=== PATIENT | male | born 1950 | race Caucasian/White ===

== ENCOUNTER → 2016-09-22 | Outpatient (REF) | payer MEDICARE ==
[~2016-09-22] MED LIST: /GLIP10TAB; /INSULEV; ACET65TA; ASPI1TAB PO; ATOR40TA75 PO; BENA40TA2; BENAZEP/HCTZ PO; CINN1CAP PO; D 50CAP PO; GLIPPOW; HUMA100I5; HUMALOG; HYDROCHLOROTHIAZIDE; MINO50CA3 PO; OMEG1CAP16 PO; OMEP20CA3 PO; OMEP20TA7; PRAV10TA2; PRAV40TA; PRAVASTATIN; TETR250C; TOUJ1.2I SUBQ; VICT18IN SUBQ; VITA10006 PO
[2016-09-22 19:43] LABS: BLOOD UREA NITROGEN 21 MG/DL (7-18); CREATININE FOR GFR 1.15 MG/DL (0.70-1.30); GLOMERULAR FILTRATION RATE > 60.0 (>49)
== END ==
LOC: M LABDRAW1 17:19
PROVIDERS: ATTEND Physical Medicine & Rehabilitation
DX: M77.12 Lateral epicondylitis, left elbow (principal)

== ENCOUNTER 2016-12-01 07:29 | Outpatient (CLI) | payer MEDICARE ==
[~2016-12-01] VITALS: Ht 165.1 cm; Wt 95.3 kg
[2016-12-01] MEDS ORDERED: NS 1,000 ML IV ONE (07:45)
[2016-12-01] MEDS ORDERED: PROPOFOL 200 MG/20 ML VIAL As Ordered ONE (08:36)
[2016-12-01] MEDS ORDERED: LIDOCAINE 2% INJ 100 MG/5 ML SDV (FOR ANES.) As Ordered ONE (08:36)
--- NOTE | 2016-12-01 09:04 | ROOR ---
Patient Name: Emmanuel Layne Procedure Date: 12/01/2016 8:33 AM Date of : 1950 Age: 66 Room: [facility] Gender: Male Note Status: Finalized Procedure: Total Colonoscopy to cecum + Biopsy Polypectomy Indications: Screening for colorectal malignant neoplasm, Last colonoscopy: 2006 Providers: Evaristo Gaona MD Referring MD: Kailash Martell MD Requesting Provider: Medicines: Monitored Anesthesia Care Complications: No immediate complications. Procedure: Pre-Anesthesia Assessment: - The heart rate, respiratory rate, oxygen saturations, blood pressure, adequacy of pulmonary ventilation, and response to care were monitored throughout the procedure. The Colonoscope was introduced through the anus and advanced to the cecum, identified by appendiceal orifice and ileocecal valve. The colonoscopy was performed without difficulty. The patient tolerated the procedure well. The quality of the bowel preparation was excellent. Findings: The perianal and digital rectal examinations were normal. Non-bleeding internal hemorrhoids were found during retroflexion. The hemorrhoids were small and Grade I (internal hemorrhoids that do not prolapse). Scattered small-mouthed diverticula were found in the recto-sigmoid colon, sigmoid colon and descending colon. A small polyp was found at 20 cm proximal to the anus. The polyp was sessile. The polyp was removed with a jumbo cold forceps. Resection and retrieval were complete. The exam was otherwise without abnormality on direct and retroflexion views. Impression: - Non-bleeding internal hemorrhoids. - Diverticulosis in the recto-sigmoid colon, in the sigmoid colon and in the descending colon. - One small polyp at 20 cm proximal to the anus, removed with a jumbo cold forceps. Resected and retrieved. - The examination was otherwise normal on direct and retroflexion views. - The exam was otherwise normal to the cecum. Recommendation: - Patient has a contact number available for emergencies. The signs and symptoms of potential delayed complications were discussed with the patient. Return to normal activities tomorrow. Written discharge instructions were provided to the patient. - High fiber diet. - Discharge patient to home. - Continue present medications. - Await pathology results. - Repeat colonoscopy in 10 years for surveillance based on pathology results. - Return to referring physician. - The findings and recommendations were discussed with the patient's family. Evaristo Gaona MD Evaristo Gaona MD 12/01/2016 9:04:05 AM This report has been signed electronically. Number of Addenda: 0 Note Initiated On: 12/01/2016 8:33 AM Estimated Blood Loss: Estimated blood loss: none.
[2016-12-01 09:30] VITALS: BP 172/80
== END 2016-12-01 09:35 | disposition home or self-care (01) ==
LOC: M OPP 07:29
PROVIDERS: ATTEND Internal Medicine Gastroenterology
DX: Z12.11 Encounter for screening for malignant neoplasm of colon (principal); D12.5 Benign neoplasm of sigmoid colon; K64.0 First degree hemorrhoids; K57.30 Diverticulosis of large intestine without perforation or abscess without bleeding; I10 Essential (primary) hypertension; E78.5 Hyperlipidemia, unspecified; E11.9 Type 2 diabetes mellitus without complications; R12 Heartburn; M19.90 Unspecified osteoarthritis, unspecified site; Z86.14 Personal history of Methicillin resistant Staphylococcus aureus infection; M54.2 Cervicalgia; M25.60 Stiffness of unspecified joint, not elsewhere classified; L40.9 Psoriasis, unspecified; G47.8 Other sleep disorders; G47.30 Sleep apnea, unspecified; R06.83 Snoring; Z85.828 Personal history of other malignant neoplasm of skin; Z79.82 Long term (current) use of aspirin; Z79.899 Other long term (current) drug therapy; Z79.4 Long term (current) use of insulin; Z80.7 Family history of other malignant neoplasms of lymphoid, hematopoietic and related tissues; Z83.71 Family history of colonic polyps

== ENCOUNTER → 2019-01-31 | Outpatient (REF) | payer MEDICARE ==
[~2019-01-31] MED LIST changes: -/INSULEV; -ASPI1TAB PO; +ASPI81TA26 PO; +LEVE0.01; -OMEP20CA3 PO; +OMEP20CA4 PO
[2019-01-31 13:20] LABS: APPEARANCE, URINE CLEAR (CLEAR); BACTERIA, URINE AUTO NEGATIVE (NEGATIVE); BILIRUBIN, URINE AUTO NEGATIVE (NEGATIVE); BLOOD, URINE BLOOD NEGATIVE (NEGATIVE); COLOR, URINE STRAW (YELLOW); GLUCOSE, URINE (UA) AUTO 3+ mg/dL (NEGATIVE); KETONE, URINE AUTO NEGATIVE (NEGATIVE); LEUKOCYTE ESTERASE, URINE AUTO NEGATIVE (NEGATIVE); NITRITE, URINE AUTO NEGATIVE (NEGATIVE); PROTEIN, URINE AUTO NEGATIVE (NEGATIVE); RBC, URINE AUTO 2 /HPF (0-3); SPECIFIC GRAVITY URINE AUTO 1.008 (1.002-1.035); SQUAMOUS EPITHELIAL CELL UR AU 0 /HPF (0-6); UROBILINOGEN, URINE AUTO 0.2 mg/dL (0.0-2.0); WBC, URINE AUTO 1 /HPF (0-3)
[2019-01-31 13:28] LABS: INR 0.99; PROTHROMBIN TIME 12.8 SECONDS (11.8-14.0)
[2019-01-31 13:29] LABS: PARTIAL THROMBOPLASTIN TIME 29.1 SECONDS (25.0-38.4)
== END ==
LOC: M LAB REF 12:21
PROVIDERS: ATTEND Family Medicine
DX: Z01.818 Encounter for other preprocedural examination (principal); Z79.01 Long term (current) use of anticoagulants

== ENCOUNTER → 2019-03-29 | Outpatient (REF) | payer MEDICARE ==
[~2019-03-29] MED LIST changes: +OMEP1CAP73 PO; -OMEP20CA4 PO
== END ==
LOC: M LAB REF 09:26
PROVIDERS: ATTEND Dermatology
DX: D22.62 Melanocytic nevi of left upper limb, including shoulder (principal)

== ENCOUNTER → 2019-05-15 | Outpatient (REF) | payer MEDICARE | LOC: M LAB REF 16:38 | PROVIDERS: ATTEND Dermatology | DX: D22.62 Melanocytic nevi of left upper limb, including shoulder (principal) ==

== ENCOUNTER → 2019-09-13 | Outpatient (REF) | payer MEDICARE | LOC: M LAB REF 09:22 | PROVIDERS: ATTEND Dermatology | DX: C44.320 Squamous cell carcinoma of skin of unspecified parts of face (principal); L57.0 Actinic keratosis ==

== ENCOUNTER → 2019-10-25 | Outpatient (REF) | payer MEDICARE | LOC: M LAB REF 13:55 | PROVIDERS: ATTEND Dermatology | DX: C44.319 Basal cell carcinoma of skin of other parts of face (principal) ==

== ENCOUNTER → 2021-02-16 | Outpatient (CLI) | payer OTHER | LOC: M PLAIMG 15:11 | PROVIDERS: ATTEND Physician Assistant | DX: M47.26 Other spondylosis with radiculopathy, lumbar region (principal) ==

== ENCOUNTER → 2021-04-03 | Outpatient (REF) | payer MEDICARE ==
[2021-04-05 04:06] LABS: LDL DIRECT 60 mg/dL (0-99)
== END ==
LOC: M LAB REF 17:03
PROVIDERS: ATTEND Family Medicine
DX: E78.00 Pure hypercholesterolemia, unspecified (principal)

== ENCOUNTER → 2021-06-17 | Outpatient (REF) | payer MEDICARE | LOC: M SFHCDERM 16:33 | PROVIDERS: ATTEND Physician Assistant | DX: L57.0 Actinic keratosis (principal) ==

== ENCOUNTER → 2022-04-27 | Outpatient (REF) | payer MEDICARE ==
[2022-04-29 08:09] LABS: LDL DIRECT 55 mg/dL (0-99)
== END ==
LOC: M LAB REF 16:17
PROVIDERS: ATTEND Family Medicine
DX: E78.00 Pure hypercholesterolemia, unspecified (principal)

== ENCOUNTER → 2022-10-13 | Outpatient (REF) | payer MEDICARE ==
[2022-10-14 08:11] LABS: LDL DIRECT 65 mg/dL (0-99)
== END ==
LOC: M LAB REF 11:31
PROVIDERS: ATTEND Family Medicine
DX: E78.00 Pure hypercholesterolemia, unspecified (principal)

== ENCOUNTER 2022-11-04 06:14 | Observation (INO) | payer MEDICARE ==
[~2022-11-04] VITALS: Ht 167.6 cm; Wt 91.9 kg
[~2022-11-04 06:14] MED LIST changes: +TOUJ1.2I SC; -TOUJ1.2I SUBQ
[2022-11-04] MEDS ORDERED: METF500T13 PO (06:29)
[2022-11-04] MEDS ORDERED: VENL75CA47 PO (06:29)
[2022-11-04] MEDS ORDERED: NS 1,000 ML IV ONE ×2 (07:15→09:15)
[2022-11-04 07:54] LABS: VENOUS BASE EXCESS -0.1 (-2.0-2.0); VENOUS HCO3 24.3 MMOL/L (23.0-27.0); VENOUS O2 SATURATION 94.6 % (60.0-80.0); VENOUS PARTIAL PRESSURE O2 72.2 mmHg (30.0-50.0); VENOUS PH 7.413 UNITS (7.330-7.430); VENOUS STANDARD HCO3 24.4 MMOL/L; VENOUS TOTAL CO2 25.5 MMOL/L (24.0-28.0)
[2022-11-04 08:02] LABS: BASO % 0.3 % (0.0-1.0); EOS # 0.1 10^3/uL (0.0-0.5); EOS % 0.9 % (0.0-3.0); HEMATOCRIT 39.5 % (42.0-52.0); HEMOGLOBIN 13.5 g/dl (13.5-17.5); LYMPH # 0.7 10^3/uL (1.5-5.0); MEAN CORPUSCULAR HGB CONC 34.2 g/dl (32.0-36.5); MEAN CORPUSCULAR VOLUME 84.9 fl (80.0-96.0); MONO # 0.5 10^3/uL (0.0-0.8); MONO % 8.3 % (2.0-8.0); NEUTROPHILS # 5.1 10^3/uL (1.5-8.5); NEUTROPHILS % 78.9 % (36.0-66.0); PLATELET COUNT, AUTOMATED 167 10^3/uL (150-450); RED BLOOD COUNT 4.65 10^6/uL (4.30-6.10); WHITE BLOOD COUNT 6.5 10^3/uL (4.0-10.0)
[2022-11-04 08:17] LABS: HEMOGLOBIN A1c 11.6 % (4.0-6.0)
[2022-11-04 08:20] LABS: INR 1.02; PROTHROMBIN TIME 13.1 SECONDS (12.5-14.5)
[2022-11-04 08:21] LABS: PARTIAL THROMBOPLASTIN TIME 28.4 SECONDS (24.8-34.2)
[2022-11-04 08:25] LABS: ETHYL ALCOHOL (ETHANOL) 0.004 % (0.000-0.010)
[2022-11-04 08:26] LABS: CK-MB VALUE MASS < 1.0 NG/ML (<3.6)
[2022-11-04 08:27] LABS: ACETONE/KETONE 0.54 MMOL/L (0.02-0.27); CPK CREATINE PHOSPHOKINASE 104 U/L (46-171); MB/CK RELATIVE INDEX 0.96 (< OR =4)
[2022-11-04] MEDS: ATORVASTATIN 20 MG TAB PO SCH (09:00)
[2022-11-04] MEDS: BENAZEPRIL 20 MG TAB PO SCH (09:00)
[2022-11-04] MEDS: ASPIRIN 81MG ENTERIC TABLET PO SCH (09:00)
[2022-11-04] MEDS: DOXYCYCLINE HYCLATE 100MG TABLET PO SCH ×2 (09:00→21:50)
[2022-11-04] MEDS ORDERED: LEVEMIR (INSULIN DETEMIR) 1 UNITS/0.01ML SC SCH (09:00)
[2022-11-04] MEDS: CETIRIZINE (ZyrTEC) 10 MG TAB PO SCH (09:00)
[2022-11-04 09:34] LABS: CK-MB VALUE MASS < 1.0 NG/ML (<3.6)
[2022-11-04 09:35] LABS: CPK CREATINE PHOSPHOKINASE 86 U/L (46-171); MB/CK RELATIVE INDEX 1.16 (< OR =4)
[2022-11-04 09:42] LABS: APPEARANCE, URINE CLEAR (CLEAR); BACTERIA, URINE AUTO NEGATIVE (NEGATIVE); BILIRUBIN, URINE AUTO NEGATIVE (NEGATIVE); BLOOD, URINE BLOOD NEGATIVE (NEGATIVE); COLOR, URINE YELLOW (YELLOW); GLUCOSE, URINE (UA) AUTO 3+ mg/dL (NEGATIVE); KETONE, URINE AUTO 1+ mg/dL (NEGATIVE); LEUKOCYTE ESTERASE, URINE AUTO NEGATIVE (NEGATIVE); MUCUS, URINE SMALL (NEGATIVE); NITRITE, URINE AUTO NEGATIVE (NEGATIVE); PROTEIN, URINE AUTO 2+ mg/dL (NEGATIVE); RBC, URINE AUTO 1 /HPF (0-3); SPECIFIC GRAVITY URINE AUTO 1.035 (1.002-1.035); SQUAMOUS EPITHELIAL CELL UR AU 0 /HPF (0-6); UROBILINOGEN, URINE AUTO 0.2 mg/dL (0.0-2.0); WBC, URINE AUTO 1 /HPF (0-3)
[2022-11-04 10:09] LABS: AMPHETAMINES LEVEL URINE NEGATIVE (NEGATIVE); BARBITURATES URINE NEGATIVE (NEGATIVE); BENZODIAZEPINES URINE NEGATIVE (NEGATIVE); COCAINE METABOLITE URINE NEGATIVE (NEGATIVE); METHADONE URINE NEGATIVE (NEGATIVE)
[2022-11-04 10:10] LABS: CANNABINOIDS URINE NEGATIVE (NEGATIVE); OPIATES URINE NEGATIVE (NEGATIVE); PHENCYCLIDINE URINE NEGATIVE (NEGATIVE)
[2022-11-04] MEDS ORDERED: MED REC IN PROGRESS XX SCH ×2 (11:20→14:30)
[2022-11-04] MEDS ORDERED: MED REC CURRENTLY UNOBTAINABLE XX SCH (11:30)
[2022-11-04] MEDS ORDERED: MOM 30ML SUSPENSION UDC PO PRN (14:30)
[2022-11-04] MEDS ORDERED: ACETAMINOPHEN TAB 650MG DOSE (2X325MG) PO PRN (14:30)
[2022-11-04] MEDS ORDERED: GLUCOSE 4GM CHEW TABLET PO PRN (14:40)
[2022-11-04] MEDS ORDERED: GLUCAGON INJ 1MG VIAL SC PRN (14:40)
[2022-11-04] MEDS ORDERED: DEXTROSE 50% 50ML SYRINGE IV PRN (14:40)
[2022-11-04] MEDS ORDERED: DOXY50CA PO (14:49)
[2022-11-04] MEDS ORDERED: D3 U5000 PO (14:49)
[2022-11-04] MEDS ORDERED: BENA20TA6 PO (14:49)
[2022-11-04] MEDS ORDERED: CETI-24 PO (14:51)
[2022-11-04] MEDS ORDERED: HOME MED LIST COMPLETE! XX SCH (14:55)
[2022-11-04 16:21] VITALS: BP 168/92; TEMP 99.1; O2SAT 96
[2022-11-04 16:30] VITALS: BP_SYST 132; BP_SYST 151; BP_SYST 168; BP_DIAS 85; BP_DIAS 89; BP_DIAS 92
[2022-11-04] MEDS: OMEPRAZOLE 20MG CAP PO SCH (17:13)
[2022-11-04] MEDS: VENLAFAXINE **XR** 75MG CAPSULE PO SCH (17:13)
[2022-11-04] MEDS: hydroCHLOROthiazide 12.5 MG CAPSULE PO SCH (17:13)
[2022-11-04] MEDS: VITAMIN D 1,000 INTERNATIONAL UNITS TABLET PO SCH (17:13)
[2022-11-04] MEDS: INSULIN LISPRO (NovoLOG) PER UNIT SC SCH ×2 (17:14→21:51)
[2022-11-04] MEDS: RIVAROXABAN 10MG TAB (XARELTO) PO SCH (17:14)
[2022-11-04 20:07] VITALS: BP 154/88; TEMP 99; O2SAT 98
[2022-11-04] MEDS ORDERED: PILL CUTTER 1 EACH XX ONE (21:46)
[2022-11-04 21:50] VITALS: BP_SYST 152; BP_SYST 178; BP_SYST 184; BP_DIAS 86; BP_DIAS 87; BP_DIAS 88
[2022-11-04] MEDS: DOCUSATE SODIUM 100MG CAPSULE PO SCH (21:50)
[2022-11-04] MEDS: LEVEMIR (INSULIN DETEMIR) 1 UNITS/0.01ML SC SCH (21:51)
[2022-11-04] MEDS ORDERED: BENAZEPRIL 20 MG TAB PO ONE (22:10)
[2022-11-04 22:59] VITALS: BP 121/80
[2022-11-05 06:00] VITALS: BP 147/80; TEMP 98.6; O2SAT 99
[2022-11-05 06:11] LABS: HEMATOCRIT 36.1 % (42.0-52.0); HEMOGLOBIN 12.1 g/dl (13.5-17.5); MEAN CORPUSCULAR HEMOGLOBIN 29.1 pg (27.0-33.0); MEAN CORPUSCULAR HGB CONC 33.5 g/dl (32.0-36.5); MEAN CORPUSCULAR VOLUME 86.8 fl (80.0-96.0); PLATELET COUNT, AUTOMATED 154 10^3/uL (150-450); RED BLOOD COUNT 4.16 10^6/uL (4.30-6.10); WHITE BLOOD COUNT 4.1 10^3/uL (4.0-10.0)
[2022-11-05 06:35] LABS: BLOOD UREA NITROGEN 19 MG/DL (9-23); CALCIUM LEVEL 8.7 MG/DL (8.3-10.6); CARBON DIOXIDE LEVEL 28 MMOL/L (20-31); CHLORIDE LEVEL 100 MMOL/L (98-107); CREATININE FOR GFR 0.93 MG/DL (0.70-1.30); GLOMERULAR FILTRATION RATE > 60.0 (>42); GLUCOSE, FASTING 241 MG/DL (74-106); POTASSIUM SERUM 3.7 MMOL/L (3.5-5.1); SODIUM LEVEL 136 MMOL/L (136-145)
[2022-11-05 07:52] VITALS: BP 170/88
[2022-11-05] MEDS: INSULIN LISPRO (NovoLOG) PER UNIT SC SCH ×4 (08:02→20:08)
[2022-11-05] MEDS: LEVEMIR (INSULIN DETEMIR) 1 UNITS/0.01ML SC SCH ×2 (08:02→20:08)
[2022-11-05] MEDS: OMEPRAZOLE 20MG CAP PO SCH (08:03)
[2022-11-05] MEDS: DOCUSATE SODIUM 100MG CAPSULE PO SCH ×2 (08:03→20:08)
[2022-11-05] MEDS: ATORVASTATIN 20 MG TAB PO SCH (08:03)
[2022-11-05] MEDS: VITAMIN D 1,000 INTERNATIONAL UNITS TABLET PO SCH (08:03)
[2022-11-05] MEDS: CETIRIZINE (ZyrTEC) 10 MG TAB PO SCH (08:03)
[2022-11-05] MEDS: hydroCHLOROthiazide 12.5 MG CAPSULE PO SCH (08:04)
[2022-11-05] MEDS: BENAZEPRIL 20 MG TAB PO SCH (08:04)
[2022-11-05] MEDS: ASPIRIN 81MG ENTERIC TABLET PO SCH (08:04)
[2022-11-05] MEDS: VENLAFAXINE **XR** 75MG CAPSULE PO SCH (08:04)
[2022-11-05] MEDS: DOXYCYCLINE HYCLATE 100MG TABLET PO SCH ×2 (08:05→20:08)
[2022-11-05] MEDS ORDERED: PILL CUTTER 1 EACH XX ONE (08:11)
[2022-11-05] MEDS ORDERED: RAMELTEON 8 MG TAB (ROZEREM) PO PRN (13:00)
[2022-11-05 14:00] VITALS: BP 153/86; TEMP 99; O2SAT 97
[2022-11-05] MEDS ORDERED: BENAZEPRIL 20 MG TAB PO ONE (16:10)
[2022-11-05] MEDS ORDERED: hydroCHLOROthiazide 12.5 MG CAPSULE PO ONE (16:10)
[2022-11-05] MEDS: RIVAROXABAN 10MG TAB (XARELTO) PO SCH (17:34)
[2022-11-05 20:00] VITALS: BP 156/81; TEMP 98.8; O2SAT 96
[2022-11-06 06:00] VITALS: BP 166/83; TEMP 98.2; O2SAT 98
[2022-11-06] MEDS: ASPIRIN 81MG ENTERIC TABLET PO SCH (09:00)
[2022-11-06] MEDS: ATORVASTATIN 20 MG TAB PO SCH (09:00)
[2022-11-06] MEDS ORDERED: CHLORTHALIDONE 25 MG TAB PO SCH (09:00)
[2022-11-06] MEDS ORDERED: LEVEMIR (INSULIN DETEMIR) 1 UNITS/0.01ML SC SCH (09:00)
[2022-11-06] MEDS: VITAMIN D 1,000 INTERNATIONAL UNITS TABLET PO SCH (09:00)
[2022-11-06] MEDS: DOCUSATE SODIUM 100MG CAPSULE PO SCH (09:00)
[2022-11-06] MEDS: OMEPRAZOLE 20MG CAP PO SCH (09:00)
[2022-11-06] MEDS ORDERED: levETIRAcetam 250MG TABLET (KEPPRA) PO SCH (09:00)
[2022-11-06] MEDS ORDERED: BENAZEPRIL 20 MG TAB PO SCH (09:00)
[2022-11-06 09:01] VITALS: BP 155/82
[2022-11-06] MEDS: CETIRIZINE (ZyrTEC) 10 MG TAB PO SCH (09:01)
[2022-11-06] MEDS: VENLAFAXINE **XR** 75MG CAPSULE PO SCH (09:01)
[2022-11-06] MEDS: DOXYCYCLINE HYCLATE 100MG TABLET PO SCH (09:01)
[2022-11-06] MEDS: INSULIN LISPRO (NovoLOG) PER UNIT SC SCH (09:02)
[2022-11-06] MEDS ORDERED: BENA20TA6 PO (09:27)
[2022-11-06] MEDS ORDERED: LEVE500T5 PO (09:32)
[2022-11-06] MEDS ORDERED: BENA20TA PO (09:51)
[2022-11-06] MEDS ORDERED: CHLO125TA PO (09:51)
== END 2022-11-06 10:42 | disposition home or self-care (01) ==
LOC: M ED 06:14 → M ED INP 06:15 → ENRESERV 15:27 → M MSPAV 16:21
PROVIDERS: ADMIT Student in an Organized Health Care Education/Training Program; ATTEND Student in an Organized Health Care Education/Training Program
DX: R55 Syncope and collapse (principal); G31.84 Mild cognitive impairment of uncertain or unknown etiology; R44.3 Hallucinations, unspecified; G31.1 Senile degeneration of brain, not elsewhere classified; I67.82 Cerebral ischemia; E11.65 Type 2 diabetes mellitus with hyperglycemia; I10 Essential (primary) hypertension; R41.3 Other amnesia; K21.9 Gastro-esophageal reflux disease without esophagitis; E78.5 Hyperlipidemia, unspecified; J31.0 Chronic rhinitis; L71.8 Other rosacea; J45.909 Unspecified asthma, uncomplicated; Z79.899 Other long term (current) drug therapy; Z79.2 Long term (current) use of antibiotics; Z79.84 Long term (current) use of oral hypoglycemic drugs; Z79.82 Long term (current) use of aspirin; Z91.51 Personal history of suicidal behavior; Z82.0 Family history of epilepsy and other diseases of the nervous system; Z81.8 Family history of other mental and behavioral disorders; Z81.1 Family history of alcohol abuse and dependence
CPT/HCPCS: 36415; 70450; 70551; 71046; 72125; 72192; 73502; 80047; 80048; 80307; 81001; 82010; 82077; 82550; 82553; 82803; 83036; 83605; 83930; 84484; 85025; 85027; 85610; 85730; 87040; 87486; 87581; 87633; 87798; 93005; 93041; 93306; 95819; 96360; 96361; 97161; 97165; 97530; 99235; 99285; G0378; J1815

== ENCOUNTER → 2023-06-22 | Outpatient (REF) | payer MEDICARE ==
[~2023-06-22] MED LIST changes: +BENA20TA PO; +BENA20TA6 PO; +CETI-24 PO; +CHLO125TA PO; +D3 U5000 PO; +DOXY50CA PO; +LEVE500T5 PO; +METF500T13 PO; +VENL75CA47 PO
== END ==
LOC: M LAB REF 16:44
PROVIDERS: ATTEND Family Medicine
DX: E78.00 Pure hypercholesterolemia, unspecified (principal)

== ENCOUNTER → 2023-08-23 | Outpatient (CLI) | payer MEDICARE | LOC: M PLAIMG 07:39 | PROVIDERS: ATTEND Orthopaedic Surgery | DX: M72.0 Palmar fascial fibromatosis [Dupuytren] (principal); M75.42 Impingement syndrome of left shoulder ==

== ENCOUNTER → 2024-03-07 | Outpatient (REF) | payer MEDICARE | LOC: M LAB REF 16:27 | PROVIDERS: ATTEND Family Medicine | DX: E78.00 Pure hypercholesterolemia, unspecified (principal) ==

== ENCOUNTER → 2024-06-08 | Outpatient (REF) | payer MEDICARE ==
[2024-06-09 07:45] LABS: LDL DIRECT 141 mg/dL (<100)
== END ==
LOC: M LAB REF 14:18
PROVIDERS: ATTEND Family Medicine
DX: E78.00 Pure hypercholesterolemia, unspecified (principal)

== ENCOUNTER → 2024-10-09 | Outpatient (REF) | payer MEDICARE ==
[2024-10-11 09:42] LABS: LDL DIRECT 54 mg/dL (<100)
== END ==
LOC: M LAB REF 15:05
PROVIDERS: ATTEND Family Medicine
DX: E78.00 Pure hypercholesterolemia, unspecified (principal)